=== PATIENT | female | born 1940 | race African-American/Black ===

== ENCOUNTER 2016-11-06 14:01 | Emergency (ER) | payer BC, OTHER ==
[~2016-11-06] VITALS: Ht 165.1 cm; Wt 75.0 kg
[~2016-11-06 14:01] MED LIST: CLON0.2T; PRED10TA; TRAM50TA
[2016-11-06] MEDS ORDERED: IBUPROFEN 400MG TABLET PO ONE (15:15)
[2016-11-06 15:28] VITALS: BP 168/61
== END 2016-11-06 17:43 | disposition home or self-care (01) ==
LOC: ER 14:16
DX: S63.592A Other specified sprain of left wrist, initial encounter (principal); S93.492A Sprain of other ligament of left ankle, initial encounter; W18.39XA Other fall on same level, initial encounter; Y93.89 Activity, other specified; Y92.89 Other specified places as the place of occurrence of the external cause; Y99.8 Other external cause status; Z87.891 Personal history of nicotine dependence
CPT/HCPCS: 73110; 73610; 99284

== ENCOUNTER 2018-09-04 09:02 | Emergency (ER) | payer MEDICARE, MEDICAID, OTHER ==
[~2018-09-04] VITALS: Ht 160 cm; Wt 65.0 kg
[~2018-09-04 09:02] MED LIST changes: -CLON0.2T; -PRED10TA
[2018-09-04 13:35] VITALS: BP 144/85
[2018-09-04 14:00] LABS: BASOPHILS % 0.5 % (0.0-2.0); EOSINOPHILS % 2.7 % (0.0-5.0); HEMATOCRIT. 41.7 % (36.0-48.0); HEMOGLOBIN. 13.7 g/dL (12.0-16.0); LYMPHOCYTES % 30.6 % (20.0-50.0); MEAN CORPUSCULAR VOLUME 85.6 fL (81.0-99.0); MEAN PLATELET VOLUME 8.4 fl (7.4-10.4); MONOCYTES % 8.8 % (2.0-8.0); NEUTROPHILS % 57.4 % (40.0-76.0); PLATELET 188 x1000/uL (130-400); RED BLOOD CELL COUNT 4.87 mill/uL (4.2-5.4); RED CELL DISTRIBUTION WIDTH 14.2 % (11.6-14.6)
[2018-09-04 14:08] LABS: CHLORIDE 107 mEq/L (98-107)
== END 2018-09-04 14:00 | disposition left against medical advice (07) ==
LOC: ER 09:04
DX: R42 Dizziness and giddiness (principal); I10 Essential (primary) hypertension; H26.9 Unspecified cataract; Z87.891 Personal history of nicotine dependence
CPT/HCPCS: 36415; 71045; 83880; 84484; 93005; 99284